=== PATIENT | male | born 1990 | race Caucasian/White ===

== ENCOUNTER 2017-08-30 13:46 | Emergency (ER) | payer BC, OTHER ==
--- NOTE | 2017-08-30 15:14 | UC ---
Abdominal Pain Male HPI - HPI Summary HPI Summary: 26 year old transgendered female who is transitioning to a male presents with abdominal pain . HAS HAD ABD PAIN FOR A FEW WEEKS NOW, HAS NOTICED A LOSS OF APPETITE AND HAS HAD RECTAL BLEEDING. TODAY WAS BRUSHING TEETH AND GAGGED, VOMITED UP BILE THAT WAS TINGED WITH DARK BLOOD. HAD A CT RECENTLY THAT NOTED HEPATOMEGALY AND SPLENOMEGALY. Of note has also had multiple rounds of antibiotics for infection and acne. Has had blood in stool for years and last year had Upper endoscopy and colonoscopy showing gastric and rectal ulcers . He is under a lot of stress with school, anxiety and trantsitioning. No therapist or psych at this time and been waiting for one since 02/2016. Not taking NSAIDs at this time. Had recurrent UTI the past 2 mo and finished cipro 1 week ago. No diarrhea. Had labs with CBC done 2 weeks ago at PCP and normal results [ End ] - History of Current Complaint Chief Complaint: UCAbdominalPain Stated Complaint: VOMITTING/SOME BLOOD Time Seen by Provider: 08/30/17 15:01 Hx Obtained From: Patient Onset/Duration: Gradual Onset Timing: Constant Severity Initially: Mild Severity Currently: Moderate Pain Intensity: 6 Location: Diffuse Radiates: No Character: Aching, Burning Associated Signs And Symptoms: Positive: Blood in Stool, Nausea, Vomiting. Negative: Fever, Constipation - Allergies/Home Medications Allergies/Adverse Reactions: Allergies Allergy/AdvReac Type Severity Reaction Status Date / Time ibuprofen Allergy See Comment Verified 08/30/17 14:42 Sulfa (Sulfonamide Allergy Hives Verified 08/30/17 14:42 Antibiotics) Home Medications: Home Medications DOXYcycline CAP(*) [DOXYcycline 100MG CAP(*)] 100 mg PO DAILY 08/30/17 [History Confirmed 08/30/17] Escitalopram Oxalate [Lexapro 20 mg] 20 mg PO DAILY 08/30/17 [History Confirmed 08/30/17] Testosterone Cypionate [Depo-Testosterone] 200 mg IM WEEKLY 08/30/17 [History Confirmed 08/30/17] busPIRone TAB* [Buspar TAB *] 15 mg PO DAILY 08/30/17 [History Confirmed ] PMH/Surg Hx/FS Hx/Imm Hx Previously Healthy: Yes GI/ History: Ulcer, Other - blood in stool for years Other GI/ History: blood in stool for years Psychological History: Anxiety, Depression - Surgical History Surgery Procedure, Year, and Place: APPENDECTOMY. TONSILLECTOMY - Social History Alcohol Use: None Substance Use Type: None Smoking Status (MU): Never Smoked Tobacco Review of Systems Gastrointestinal: Vomiting, Nausea, Other - blood in stool and blood in emesis Is Patient Immunocompromised?: No All Other Systems Reviewed And Are Negative: Yes Physical Exam Triage Information Reviewed: Yes Appearance: Well-Appearing, No Pain Distress, Well-Nourished Vital Signs: Initial Vital Signs Temp 98.5 F 08/30/17 14:33 Pulse 60 08/30/17 14:33 Resp 16 08/30/17 14:33 BP 108/59 08/30/17 14:33 Pulse Ox 100 08/30/17 14:33 Vital Signs Reviewed: Yes Eye Exam: Normal ENT Exam: Normal Dental Exam: Normal Neck exam: Normal Neck: Positive: 1 Respiratory Exam: Normal Cardiovascular Exam: Normal Abdominal Exam: Normal Abdomen Description: Positive: Nontender, Soft. Negative: CVA Tenderness (R), CVA Tenderness (L), Distended, Guarding Musculoskeletal Exam: Normal Neurological Exam: Normal Psychological Exam: Normal Skin Exam: Normal Abd Pain Male Course/Dx - Course Course Of Treatment: See HPI. Has had complete work up for anemia, GI bleed, had GI eval and CT scan , recent labs with PCP. Having worse anxiety and may be cause. Discussed here in UC can not draw labs or work up compeltely but it appears to be anxiety / ulcer and start PPI at this time. Advised to seek care with psych IQ and f/u with PCP and GI. If sx worsen or more vomit with blood then go directly to ED and he is agreeable to plan. Of note U/A neg - Differential Dx/Clinical Impression Provider Diagnoses: Gastritis. hematemesis. anxiety Discharge - Sign-Out/Discharge Documenting (check all that apply): Discharge - Discharge Plan Condition: Good Disposition: HOME Prescriptions: Omeprazole 40 mg PO DAILY #30 capsule. Patient Education Materials: Gastritis (ED), Diet for Stomach Ulcers and Gastritis (ED) Referrals: Non Staff,Doctor [Primary Care Provider] - 1 Day () Additional Instructions: If your symptom worsen please go to the Emergency Room. Good luck locating a psychiatrist for your symptoms as well. - Billing Disposition and Condition Condition: GOOD Disposition: HOME
[2017-08-30 15:23] VITALS: BP 108/59
== END 2017-08-30 16:10 | disposition home or self-care (01) ==
LOC: UCCORT 13:46
DX: K29.70 Gastritis, unspecified, without bleeding (principal); K92.0 Hematemesis; F41.8 Other specified anxiety disorders; Z88.2 Allergy status to sulfonamides; Z88.8 Allergy status to other drugs, medicaments and biological substances
CPT/HCPCS: 81003; 99202; G0463